=== PATIENT | male | born 1975 | race Caucasian/White ===

== ENCOUNTER 2021-07-19 19:30 | Inpatient (IN) ==
[2021-07-19] MEDS ORDERED: MULTI-VITAMIN INFUSION 10 ML, THIAMINE HCL 100 MG, FOLIC ACID 1 MG in SODIUM CHLORIDE 0... IV ONE (20:06)
[2021-07-19] MEDS ORDERED: LACTATED RINGER'S 1,000 ML IV ONE (20:06)
[2021-07-19 21:03] LABS: Basophils # (auto) 0.05 K/uL (0-0.2); Basophils % (auto) 0.6 %; Eosinophils # (auto) 0.02 K/uL (0-0.5); Eosinophils % (auto) 0.2 %; Hematocrit (blood only) 46.7 % (42-52); Immature Granulocytes # (auto) 0.01 K/uL (0.00-0.02); Immature Granulocytes % (auto) 0.1 %; Lymphocytes # (auto) 1.62 K/uL (1.2-3.4); Lymphocytes % (auto) 18.8 %; Mean Corpuscular Hemoglobin 33.1 pg (25-34); Mean Corpuscular Hgb Conc 34.3 g/dL (32-36); Mean Corpuscular Volume 96.7 fL (80-100); Mean Platelet Volume 10.2 fL (7.4-10.4); Monocytes # (auto) 0.92 K/uL (0.11-0.59); Monocytes % (auto) 10.7 %; Neutrophils # (auto) 6.01 K/uL (1.4-6.5); Neutrophils % (auto) 69.6 %; Platelet Count 205 K/uL (130-400); RDW Coefficient of Variation 13.2 % (11.5-14.5); RDW Standard Deviation 47.4 fL (36.4-46.3); Red Blood Count 4.83 M/uL (4.7-6.1); White Blood Count 8.63 K/uL (4.8-10.8)
[2021-07-19 21:19] LABS: Amphetamines+Metham, Urine Neg (Neg); Barbiturates, Urine Neg (Neg); Benzodiazepine, Urine Neg (Neg); Cocaine, Urine Neg (Neg); MDMA (Ecstacy), Urine Neg (Neg); Methadone, Urine Pos (Neg); Opiate, Urine Neg (Neg); Phencyclidine, Urine Neg (Neg)
[2021-07-19 21:32] LABS: Alanine Aminotransferase 77 U/L (12-78); Albumin Level 4.6 gm/dl (3.4-5.0); Alkaline Phosphatase 75 U/L (45-117); Aspartate Aminotransferase 61 U/L (15-37); BUN Creatinine Ratio 12.3 (10-20); Bilirubin,Total 1.4 mg/dl (0.2-1); Blood Urea Nitrogen 12 mg/dl (7-18); Calcium 9.9 mg/dl (8.5-10.1); Carbon Dioxide 24 mmol/L (21-32); Chloride 96 mmol/L (98-107); Creatinine Clr Calc Pharmacy 74.5 ml/min; Est GFR (African American) 101.5 ml/min; Est GFR (Non-African American) 87.5 ml/min; Globulin 4.6 gm/dl (2.5-4.0); Glucose 109 mg/dl (70-99); Lipase 124 U/L (73-393); Magnesium 2.2 mg/dl (1.8-2.4); Potassium 3.2 mmol/L (3.5-5.1); Sodium 133 mmol/L (136-145); Total Protein 9.2 gm/dl (6.4-8.2); Troponin I < 0.015 ng/ml (0-0.045)
[2021-07-19 21:53] LABS: T4 Free Thyroxine 0.88 ng/dl (0.8-1.6)
--- NOTE | 2021-07-20 00:18 | Emergency Department Note ---
History of Present Illness General Chief complaint: Alcohol Withdrawal Time Seen by Provider: 07/19/21 19:59 Source: patient Mode of arrival: ambulatory Limitations: no limitations History of Present Illness Provider complaint: alcohol withdrawal Onset (ago): day(s) 2 Treatments prior to arrival: none This is a 46-year-old male who presents via EMS due to concern for alcohol withdrawal. Patient states for the last year he has been drinking more than 1/5 of whiskey daily. He states he quit drinking 2 nights ago and has been feeling worse ever since. Patient states he has a sense of shaking, headache, racing heart, abdominal cramping intermittently, and lightheadedness. Patient denies any falls or injury. States 2 nights ago when he was heavily intoxicated he did blackout, and police were contacted. He states he remembers being told that he was belligerent during that encounter with police although does not recall what happened or what was said. Patient denies any suicidal ideation. Patient states he did contact his outside providers to try and get help and was referred to [facility]. He states he did speak with him about the intake process, and is waiting for paperwork to be completed so he can go there. Patient denies any prior admissions for alcohol withdrawal. No history of seizures. Patient does use methadone daily and follows with the clinic. Pt seen during a time of high acuity and national emergency pandemic while wearing PPE. Home Medications Medication Instructions Recorded Confirmed Type epinephrine 0.3 mg/0.3 mL 0.3 mg IM Q15M PRN #2 ea 02/05/21 07/19/21 Rx injection, auto-injector (EpiPen) bismuth subsalicylate 262 mg 2 tab PO DIRECTED PRN 06/12/21 07/19/21 History chewable tablet (Pepto-Bismol) methadone 10 mg tablet 30 mg PO QAM 06/12/21 07/19/21 History multivitamin 1 tab PO DAILY 06/12/21 07/19/21 History Allergies Allergy/AdvReac Type Severity Reaction Status Date / Time amoxicillin [From Augmentin] Allergy Severe Anaphylaxis Verified 07/19/21 20:24 clavulanic acid Allergy Severe Anaphylaxis Verified 07/19/21 20:24 [From Augmentin] Penicillins Allergy Unknown STRONG Verified 07/19/21 20:24 FAMILY HX OF ALLERGIC REACTIONS Past Med/Surg History Medical History Dental caries Methadone use Surgical History No significant past surgical history Family History Other Family history non-contributory Social History Smoking Status: Current every day smoker Tobacco Type: Cigarettes Hx Substance Use: Yes Preferred Language: [place] marital status: Legally current occupational status: employed Feels Safe at Home: Yes Review of Systems A total of 10 systems reviewed and were otherwise negative All systems reviewed & are unremarkable except as noted in HPI & below Physical Exam Vital Signs Vital Signs - 24 hr 07/19/21 19:33 07/19/21 20:40 07/19/21 21:30 Temperature 35.9 C L 37.0 C Temperature Source Temporal Artery Scan Oral Pulse Rate 111 H Pulse Rate [Finger] 84 95 H Respiratory Rate 24 18 18 Respiratory Effort / Characteristics Non-Labored Spontaneous Non-Labored Respiratory Depth Normal Normal Respiratory Pattern Blood Pressure 133/93 Blood Pressure [Left Arm] 128/102 H 168/114 H Blood Pressure Mean 106 Blood Pressure Mean [Left Arm] 110 132 Blood Pressure Position [Left Arm] Sitting Pulse Oximetry 97 96 97 Oxygen Delivery Method Room Air Room Air Room Air Sepsis Recent Fever Within 48 Hours No Sepsis New/Unexplained Change in Mental Status No Sepsis Action Taken by Nursing No Action Required 07/19/21 22:40 07/20/21 00:30 07/20/21 01:27 Temperature 36.8 C Temperature Source Oral Pulse Rate Pulse Rate [Finger] 87 82 79 Respiratory Rate 16 18 18 Respiratory Effort / Characteristics Non-Labored Spontaneous Non-Labored Spontaneous Respiratory Depth Normal Normal Respiratory Pattern Regular Regular Blood Pressure Blood Pressure [Left Arm] 132/96 140/99 142/101 H Blood Pressure Mean Blood Pressure Mean [Left Arm] 108 112 114 Blood Pressure Position [Left Arm] Sitting Sitting Pulse Oximetry 98 96 96 Oxygen Delivery Method Room Air Room Air Room Air Sepsis Recent Fever Within 48 Hours Sepsis New/Unexplained Change in Mental Status Sepsis Action Taken by Nursing 07/20/21 01:31 Temperature Temperature Source Pulse Rate Pulse Rate [Finger] Respiratory Rate Respiratory Effort / Characteristics Respiratory Depth Respiratory Pattern Blood Pressure Blood Pressure [Left Arm] 125/87 Blood Pressure Mean Blood Pressure Mean [Left Arm] 99 Blood Pressure Position [Left Arm] Pulse Oximetry Oxygen Delivery Method Sepsis Recent Fever Within 48 Hours Sepsis New/Unexplained Change in Mental Status Sepsis Action Taken by Nursing GENERAL: alert, well appearing, well nourished, no distress, non-toxic EYE EXAM: normal conjunctiva, PERRL and EOM's grossly intact OROPHARYNX: no exudate, no erythema, lips, buccal mucosa, and tongue normal and mucous membranes are mildly dry NECK: supple, no nuchal rigidity, no adenopathy, non-tender LUNGS: Clear to auscultation. Normal chest wall mechanics, no w/r/r HEART: no murmurs, S1 normal and S2 normal ABDOMEN: abdomen soft, non-tender, normo-active bowel sounds, no masses, no rebound or guarding. BACK: Back is symmetrical on inspection and there is no deformity, no midline tenderness, no CVA tenderness. SKIN: no rashes and no bruising UPPER EXTREMITIES: upper extremities are grossly normal. FROM, nml pulses b/l. Scattered areas of ecchymosis appear to be resolving noted to arms which patient states are from episode several nights ago where police had to restrain him. LOWER EXTREMITIES: No pitting edema. FROM, nml pulses b/l. NEURO EXAM: Normal sensorium, cranial nerves II-XII grossly intact, normal speec h, , no tremors, no gross weakness of arms, no gross weakness of legs. Gross sensation intact. Course Course 2345: Patient states he does feel better with the medication but can tell when it wears off. 0110: Discussed with patient disposition and options at this time. Patient does feel some relief with medications, he is concerned overall that the medications were off and he feels worse again. Given risk of worsening complications related to alcohol withdrawal, patient was in agreement with plan for additional inpatient monitoring and treatment. Administered Medications Discontinued Medications Diazepam (Diazepam 5 Mg/Ml Inj 10ml Vial) 10 mg IV NOW STA Stop: 07/19/21 20:07 Last Admin: 07/19/21 20:21 Dose: 10 mg Documented by: [id number] Diazepam (Diazepam 5 Mg/Ml Inj 10ml Vial) 10 mg IV NOW STA Stop: 07/19/21 21:28 Last Admin: 07/19/21 21:43 Dose: 10 mg Documented by: [id number] Diazepam (Diazepam 5 Mg/Ml Inj 10ml Vial) 10 mg IV NOW STA Stop: 07/19/21 23:35 Last Admin: 07/19/21 23:40 Dose: 10 mg Documented by: [id number] Diazepam (Diazepam 5 Mg/Ml Inj 10ml Vial) 10 mg IV NOW STA Stop: 07/20/21 01:14 Last Admin: 07/20/21 01:28 Dose: 10 mg Documented by: [id number] Multivitamins 10 ml/ Thiamine HCl 100 mg/ Folic Acid 1 mg/Sodium Chloride 1,011.2 mls @ 250 mls/hr IV .Q4H3M ONE Stop: 07/20/21 00:08 Last Infusion: 07/20/21 01:36 Dose: 0 mls/hr Documented by: [id number] Admin: 07/19/21 21:20 Dose: 250 mls/hr Documented by: [id number] Lactated Ringer's (Lr) 1,000 mls @ 999 mls/hr IV .Q1H1M ONE Stop: 07/19/21 21:06 Last Infusion: 07/19/21 21:25 Dose: 0 mls/hr Documented by: [id number] Admin: 07/19/21 20:21 Dose: 999 mls/hr Documented by: [id number] Lactated Ringer's (Lr) 1,000 mls @ 999 mls/hr IV .Q1H1M ONE Stop: 07/20/21 01:34 Last Admin: 07/20/21 01:32 Dose: 999 mls/hr Documented by: [id number] Medical Decision Making Differential Diagnosis Differential diagnosis includes etiologies such as alcohol intoxication, toxicologic, infection, hypoglycemia, electrolyte abnormalities, cardiac jael rces, intracerebral event, neurologic, as well as others were entertained. Medical Records Attestation: I reviewed the patient's medical records. Home Medications Current Medication List: was personally reviewed by me Laboratory Data Attestation: I reviewed the patient's lab results. Result diagrams: 07/19/21 19:55 07/19/21 19:55 Lab Results 07/19/21 07/19/21 07/19/21 Range/Units 19:54 19:55 19:55 WBC 8.63 (4.8-10.8) K/uL RBC 4.83 (4.7-6.1) M/uL Hgb 16.0 (14.0-18.0) g/dL Hct 46.7 (42-52) % MCV 96.7 (80-100) fL MCH 33.1 (25-34) pg MCHC 34.3 (32-36) g/dL RDW Std Deviation 47.4 H (36.4-46.3) fL RDW Coeff of Samantha 13.2 (11.5-14.5) % Plt Count 205 (130-400) K/uL MPV 10.2 (7.4-10.4) fL Immature Gran % (Auto) 0.1 % Neut % (Auto) 69.6 % Lymph % (Auto) 18.8 % Gilchrist % (Auto) 10.7 % Eos % (Auto) 0.2 % Baso % (Auto) 0.6 % Neut # (Auto) 6.01 (1.4-6.5) K/uL Lymph # (Auto) 1.62 (1.2-3.4) K/uL [place]christ # (Auto) 0.92 H (0.11-0.59) K/uL Eos # (Auto) 0.02 (0-0.5) K/uL Baso # (Auto) 0.05 (0-0.2) K/uL Immature Gran # (Auto) 0.01 (0.00-0.02) K/uL PT (9.0-12.0) Seconds INR (0.9-1.1) Sodium 133 L D (136-145) mmol/L Potassium 3.2 L (3.5-5.1) mmol/L Chloride 96 L (98-107) mmol/L Carbon Dioxide 24 (21-32) mmol/L Anion Gap 13.0 H (3-11) BUN 12 (7-18) mg/dl Creatinine 1.01 (0.6-1.4) mg/dl Est Cr Clr Drug Dosing 74.5 ml/min Est GFR ( Amer) 101.5 ml/min Est GFR (Non-Af Amer) 87.5 ml/min BUN/Creatinine Ratio 12.3 (10-20) Glucose 109 H (70-99) mg/dl Calcium 9.9 D (8.5-10.1) mg/dl Magnesium 2.2 (1.8-2.4) mg/dl Total Bilirubin 1.4 H D (0.2-1) mg/dl AST 61 H (15-37) U/L ALT 77 (12-78) U/L Alkaline Phosphatase 75 (45-117) U/L Troponin I < 0.015 (0-0.045) ng/ml Total Protein 9.2 H D (6.4-8.2) gm/dl Albumin 4.6 (3.4-5.0) gm/dl Globulin 4.6 H (2.5-4.0) gm/dl Albumin/Globulin Ratio 1.0 (0.9-2) Lipase 124 (73-393) U/L TSH 4.600 H (0.300-4.500) uIu/ml Free T4 0.88 (0.8-1.6) ng/dl Urine Opiates Screen Neg (Neg) Ur Methadone, Qual Pos H (Neg) Urine Barbiturates Neg (Neg) Ur Phencyclidine (PCP) Neg (Neg) U Amphetamin/Meth Scrn Neg (Neg) MDMA (Ecstasy) Screen Neg (Neg) U Benzodiazepines Scrn Neg (Neg) Ur Cocaine Metabolite Neg (Neg) U Marijuana (THC) Screen Pos H (Neg) Ethyl Alcohol mg/dL (0-3) mg/dl 07/19/21 07/19/21 Range/Units 19:55 20:20 WBC (4.8-10.8) K/uL RBC (4.7-6.1) M/uL Hgb (14.0-18.0) g/dL Hct (42-52) % MCV (80-100) fL MCH (25-34) pg MCHC (32-36) g/dL RDW Std Deviation (36.4-46.3) fL RDW Coeff of Samantha (11.5-14.5) % Plt Count (130-400) K/uL MPV (7.4-10.4) fL Immature Gran % (Auto) % Neut % (Auto) % Lymph % (Auto) % Gilchrist % (Auto) % Eos % (Auto) % Baso % (Auto) % Neut # (Auto) (1.4-6.5) K/uL Lymph # (Auto) (1.2-3.4) K/uL Gilchrist # (Auto) (0.11-0.59) K/uL Eos # (Auto) (0-0.5) K/uL Baso # (Auto) (0-0.2) K/uL Immature Gran # (Auto) (0.00-0.02) K/uL PT 10.1 (9.0-12.0) Seconds INR 1.0 (0.9-1.1) Sodium (136-145) mmol/L Potassium (3.5-5.1) mmol/L Chloride (98-107) mmol/L Carbon Dioxide (21-32) mmol/L Anion Gap (3-11) BUN (7-18) mg/dl Creatinine (0.6-1.4) mg/dl Est Cr Clr Drug Dosing ml/min Est GFR ( Amer) ml/min Est GFR (Non-Af Amer) ml/min BUN/Creatinine Ratio (10-20) Glucose (70-99) mg/dl Calcium (8.5-10.1) mg/dl Magnesium (1.8-2.4) mg/dl Total Bilirubin (0.2-1) mg/dl AST (15-37) U/L ALT (12-78) U/L Alkaline Phosphatase (45-117) U/L Troponin I (0-0.045) ng/ml Total Protein (6.4-8.2) gm/dl Albumin (3.4-5.0) gm/dl Globulin (2.5-4.0) gm/dl Albumin/Globulin Ratio (0.9-2) Lipase (73-393) U/L TSH (0.300-4.500) uIu/ml Free T4 (0.8-1.6) ng/dl Urine Opiates Screen (Neg) Ur Methadone, Qual (Neg) Urine Barbiturates (Neg) Ur Phencyclidine (PCP) (Neg) U Amphetamin/Meth Scrn (Neg) MDMA (Ecstasy) Screen (Neg) U Benzodiazepines Scrn (Neg) Ur Cocaine Metabolite (Neg) U Marijuana (THC) Screen (Neg) Ethyl Alcohol mg/dL < 3.0 (0-3) mg/dl Imaging Data My Impression: X-ray: I interpreted the following studies. Chest: A single view study of the chest was reviewed and was negative for cardiomegaly, focal infiltrate, effusion, pulmonary edema, or wide mediastinum. Abd: No evidence of SBO or free air ECG Data Attestation: I personally reviewed and interpreted this ECG as follows: Indication: + toxicologic Rate (beats per minute): 94 Rhythm: + normal sinus ECG Intervals/blocks: + Normal QRS and + Prolonged QT ECG [place]: + Normal ECG ST segments: + Normal ST segments ECG Findings: + PVCs MDM Narrative This is a 46-year-old male who presents with concern for alcohol withdrawal symptoms. Patient admitted to heavy alcohol use over the last year, last drink was 2 days ago. Patient obviously tremulous, tachycardic, and hypertensive on arrival. Patient improved with 10 mg IV Valium. Labs drawn and sent as a precaution, x-ray performed. Mild electrolyte abnormalities noted. Patient was started on lactated Ringer's IV fluid rehydration as well as a banana bag at a maintenance rate. Patient monitored for several hours and did require several doses of IV Valium. Patient symptoms would improve with Valium, however you could note when the Valium would wear off as the patient would become tremulous, tachycardic, and hypertensive again. Patient had been attempting to arrange placement into rehab as an outpatient although given worsening symptoms with concern for needing to come here. Discussed all results with patient after monitoring for several hours, given several doses of Valium required, discussed additional inpatient monitoring and treatment. An order was placed for continuous cardiac monitoring. The monitor shows a rate of _92_ with _normal sinus__ rhythm. Impression & Plan Alcohol withdrawal syndrome, Hypokalemia, Dehydration Discharge Plan Visit Data Chief Complaint: Alcohol Withdrawal ED Provider: Maria Houston Discharge Problem: Alcohol withdrawal syndrome, Hypokalemia, Dehydration Patient Disposition: Being Evaluated by Hospitalist Forms Stand Alone Forms: My [facility], Suicide Prevention Resources Prescriptions Prescriptions: No Action multivitamin [One A Day Vitamin] Tablet 1 tab PO DAILY RF: 0 methadone 10 mg Tablet 30 mg PO QAM RF: 0 bismuth subsalicylate [Pepto-Bismol] 262 mg Tablet,Chewable 2 tab PO DIRECTED PRN (Reason: Stomach Upset) RF: 0 epinephrine [EpiPen] 0.3 mg/0.3 mL auto-injector 0.3 mg IM Q15M PRN (Reason: anaphylaxis) Qty: 2 RF: 0 Referrals Referrals: PCP,NO [Primary Care Provider] -
[2021-07-20] MEDS ORDERED: LACTATED RINGER'S 1,000 ML IV ONE (00:34)
[2021-07-20 02:18] LABS: Prothrombin Time 10.1 Seconds (9.0-12.0)
--- NOTE | 2021-07-20 02:25 | History & Physical Report ---
Date of Service July 20, 2021 Assessment & Plan (1) Alcohol withdrawal syndrome: Plan: 46 yo M admitted for management of alcohol withdrawal. Alcohol Withdrawal - requiring 10 mg Diazepam IV x 4 doses in ER for initial control of tremor s/anxiety/withdrawal sx - AWSS protocol with scheduled librium as primary, 1 mg IV ativan for AWSS scores 6+ as breakthrough PRN - monitor and hold for sedation - last drink Mon? night - alcohol level in ER <3 - received banana bag in ER Alcohol Abuse - hepatic function WNL (plt, inr, albumin) - placement to inpatient rehab at [facility]? pending - appreciate Case Management's assistance - mcv 95, mildly anemic to 13.3 - daily folic acid, B12 IV - B12, folic acid levels pending Elevated Total Bilirubin - hepatic panel pending - no complaints of RUQ pain - lipase 124 Opiate use disorder? - continue methadone 30 daily - UDS positive for methadone and marijuana Electrolyte Derangements - hyponatremia likely secondary to alcohol - hypokalemia repleted, trend DVT ppx: low risk, ambulate ad sandra FEN/GI: regular Bowel regimen: prn miralax Code Status: full code Dispo: PCU, d/c to inpatient rehab (2) Hypokalemia: (3) Dehydration: (4) Methadone use: History of Present Illness Primary Care Provider: NO PCP 46 yo M in ER for acute alcohol withdrawal. Has been drinking ~2 fifths of whiskey per day for the past year. He has started the process of getting into inpatient rehab a few days ago but said they're waiting on paperwork from the methadone clinic for approval. He denies a history of alcoholism prior to the past year. He has been experiencing shakes, tachycardia, palpitations and tingling since stopping drinking on saturday evening. He hasn't had a bowel movement in 3 days, but says his last one was black and tarry. Smokes 1/2 ppd x 20 years. also feeling as though he can't get enough air/it's hard to take a deep breath. Chills and sweats for the past 3 days. Allergies Allergy/AdvReac Type Severity Reaction Status Date / Time amoxicillin [From Augmentin] Allergy Severe Anaphylaxis Verified 07/19/21 20:24 clavulanic acid Allergy Severe Anaphylaxis Verified 11/10/21 20:24 [From Augmentin] Penicillins Allergy Unknown STRONG Verified 07/19/21 20:24 FAMILY HX OF ALLERGIC REACTIONS Home Medications Medication Instructions Recorded Confirmed Type epinephrine 0.3 mg/0.3 mL 0.3 mg IM Q15M PRN #2 ea 02/05/21 07/19/21 Rx injection, auto-injector (EpiPen) bismuth subsalicylate 262 mg 2 tab PO DIRECTED PRN 06/12/21 07/19/21 History chewable tablet (Pepto-Bismol) methadone 10 mg tablet 30 mg PO QAM 06/12/21 07/19/21 History multivitamin 1 tab PO DAILY 06/12/21 07/19/21 History Past Med/Surg History Medical History (Updated 07/20/21 @ 05:29 by Milly Garcia MD) Dental caries Methadone use Surgical History No significant past surgical history Family History Other Family history non-contributory Social History Smoking Status: Current every day smoker Tobacco Type: Cigarettes Do You Dip or Chew Tobacco: No; Tobacco Cessation Education Requested by Patient: No Hx Alcohol Use: Yes Alcohol type: hard liquor Hx Substance Use: Yes Last Used Substance: Days (ago) Last Used Substance Other:: 2 for alcohol Preferred Language: Korean Communication Ability: Effective Industrial Sales Manager Required: No Beliefs That Will Affect Care: None marital status: Unknown Current Living Situation: Parent and Family Current Living Situation Comment: mother and daughter current occupational status: employed Other Information That Helps Us Care for You: No Feels Safe at Home: Yes Safety Concerns: Feels Safe At This Time Assistive Devices: None Review of Systems Constitutional: + chills and + sweats; no fever and no fatigue Eyes: no blind spots and no discharge Ear, Nose, Mouth, Throat: no hearing loss and no nasal congestion Respiratory: + cough and + pain on inspiration; no dyspnea Cardiovascular: + palpitations; no chest pain, no dyspnea on exertion and no edema Gastrointestinal: + melena; no abdominal pain, no nausea, no vomiting, no constipation, no diarrhea/loose stools and no blood in stools Musculoskeletal: no joint pain and no myalgia Neurologic: + tingling; no numbness, no tremor(s), no seizure-like activity and no headache(s) Psychiatric: no auditory hallucinations, no visual hallucinations and no tactile hallucinations Endocrine: no fatigue Physical Exam Physical Exam: Constitutional: tremulous, anxious appearing, tearful Eyes: EOMI, pupils equal and reactive bilaterally, no scleral icterus Cardiac: RRR, no murmurs, gallops or rubs. Normal S1, S2 Pulm: good air entry bilaterally, some end expiratory wheezing R>L Abd: soft, nontender, nondistended, normal bowel sounds, no rebound or guarding Extremities: 2+ peripheral pulses, no edema Neuro: mild tremor, no focal deficits, moving all 4 limbs, A&Ox3 Results & Data Results & Data ([facility]) Vital Signs (Past 12 Hours) Vital Signs Temp Pulse Pulse Resp BP BP Pulse Ox 07/20/21 01:31 125/87 07/20/21 01:27 79 18 142/101 H 96 07/20/21 00:30 82 18 140/99 96 07/19/21 22:40 36.8 C 87 16 132/96 98 07/19/21 21:30 95 H 18 168/114 H 97 07/19/21 20:40 37.0 C 84 18 128/102 H 96 07/19/21 19:33 35.9 C L 111 H 24 133/93 97 Laboratory Results Laboratory Results WBC 5.34 K/uL (4.8-10.8) 07/20/21 05:11 RBC 4.04 M/uL (4.7-6.1) L 07/20/21 05:11 Hgb 13.3 g/dL (14.0-18.0) L 07/20/21 05:11 Hct 38.5 % (42-52) L 07/20/21 05:11 MCV 95.3 fL (80-100) 07/20/21 05:11 MCH 32.9 pg (25-34) 07/20/21 05:11 MCHC 34.5 g/dL (32-36) 07/20/21 05:11 RDW Std Deviation 46.7 fL (36.4-46.3) H 07/20/21 05:11 RDW Coeff of Samantha 13.4 % (11.5-14.5) 07/20/21 05:11 Plt Count 147 K/uL (130-400) 07/20/21 05:11 MPV 9.3 fL (7.4-10.4) 07/20/21 05:11 Immature Gran % (Auto) 0.0 % 07/20/21 05:11 Neut % (Auto) 48.7 % 07/20/21 05:11 Lymph % (Auto) 40.4 % 07/20/21 05:11 [place] % (Auto) 8.8 % 07/20/21 05:11 Eos % (Auto) 1.7 % 07/20/21 05:11 Baso % (Auto) 0.4 % 07/20/21 05:11 Neut # (Auto) 2.60 K/uL (1.4-6.5) 07/20/21 05:11 Lymph # (Auto) 2.16 K/uL (1.2-3.4) 07/20/21 05:11 [place] # (Auto) 0.47 K/uL (0.11-0.59) 07/20/21 05:11 Eos # (Auto) 0.09 K/uL (0-0.5) 07/20/21 05:11 Baso # (Auto) 0.02 K/uL (0-0.2) 07/20/21 05:11 Immature Gran # (Auto) 0.00 K/uL (0.00-0.02) 07/20/21 05:11 PT 10.1 Seconds (9.0-12.0) 07/19/21 19:55 INR 1.0 (0.9-1.1) 07/19/21 19:55 Sodium 133 mmol/L (136-145) L D 07/19/21 19:55 Potassium 3.2 mmol/L (3.5-5.1) L 07/19/21 19:55 Chloride 96 mmol/L (98-107) L 07/19/21 19:55 Carbon Dioxide 24 mmol/L (21-32) 07/19/21 19:55 Anion Gap 13.0 (3-11) H 07/19/21 19:55 BUN 12 mg/dl (7-18) 07/19/21 19:55 Creatinine 1.01 mg/dl (0.6-1.4) 07/19/21 19:55 Est Cr Clr Drug Dosing 74.5 ml/min 07/19/21 19:55 Est GFR ( Amer) 101.5 ml/min 07/19/21 19:55 Est GFR (Non-Af Amer) 87.5 ml/min 07/19/21 19:55 BUN/Creatinine Ratio 12.3 (10-20) 07/19/21 19:55 Glucose 109 mg/dl (70-99) H 07/19/21 19:55 Calcium 9.9 mg/dl (8.5-10.1) D 07/19/21 19:55 Magnesium 2.2 mg/dl (1.8-2.4) 07/19/21 19:55 Total Bilirubin 1.4 mg/dl (0.2-1) H D 07/19/21 19:55 AST 61 U/L (15-37) H 07/19/21 19:55 ALT 77 U/L (12-78) 07/19/21 19:55 Alkaline Phosphatase 75 U/L (45-117) 07/19/21 19:55 Troponin I < 0.015 ng/ml (0-0.045) 07/19/21 19:55 Total Protein 9.2 gm/dl (6.4-8.2) H D 07/19/21 19:55 Albumin 4.6 gm/dl (3.4-5.0) 07/19/21 19:55 Globulin 4.6 gm/dl (2.5-4.0) H 07/19/21 19:55 Albumin/Globulin Ratio 1.0 (0.9-2) 07/19/21 19:55 Lipase 124 U/L (73-393) 07/19/21 19:55 TSH 4.600 uIu/ml (0.300-4.500) H 07/19/21 19:55 Free T4 0.88 ng/dl (0.8-1.6) 07/19/21 19:55 Urine Opiates Screen Neg (Neg) 07/19/21 19:54 Ur Methadone, Qual Pos (Neg) H 07/19/21 19:54 Urine Barbiturates Neg (Neg) 07/19/21 19:54 Ur Phencyclidine (PCP) Neg (Neg) 07/19/21 19:54 U Amphetamin/Meth Scrn Neg (Neg) 07/19/21 19:54 MDMA (Ecstasy) Screen Neg (Neg) 07/19/21 19:54 U Benzodiazepines Scrn Neg (Neg) 07/19/21 19:54 Ur Cocaine Metabolite Neg (Neg) 07/19/21 19:54 U Marijuana (THC) Screen Pos (Neg) H 07/19/21 19:54 Ethyl Alcohol mg/dL < 3.0 mg/dl (0-3) 07/19/21 20:20 COVID-19 Eval Order Covid19 at [facility] 07/20/21 02:39 SARS-CoV-2 (PCR) NEGATIVE (Negative) 07/20/21 02:39 Supervising Physician Co-Signing Physician Notes Attending addendum: I have physically seen this patient, have supervised the medical residents activities, and agree with the H&P unless as otherwise noted. Assessment and Plan: Alcohol withdrawal/alcohol abuse- Admit to monitored bed Received diazepam 10 mg IV x4 in ED with transient improvement in symptoms AWSS protocol Consideration to adding phenobarbital IV as needed Thiamine 500 mg p.o. daily Folic acid 1 mg p.o. daily Nephrocaps 1 p.o. daily IV fluids Follow serial CBC with differential, chemistry profile and magnesium levels Opiate use- Continue methadone Urine drug screen- Positive for methadone and marijuana Remaining orders and notations as noted Resident Activity Tracking Resident Involvement: Resident Care Provided Care Provided: Adult Hospital Medicine (1) Alcohol withdrawal syndrome Complication of substance-induced condition: with unspecified complication Qualified Code(s): F10.239 - Alcohol dependence with withdrawal, unspecified
[2021-07-20] MEDS ORDERED: chlordiazePOXIDE ALCOHOL WITHDRAWL 50MG PO STA (02:30)
[2021-07-20] MEDS: chlordiazePOXIDE HCl 25 MG CAP PO SCH ×4 (05:15→23:09)
[2021-07-20] MEDS: LACTATED RINGER'S 1,000 ML IV SCH ×3 (05:18→19:36)
[2021-07-20 05:21] LABS: Basophils # (auto) 0.02 K/uL (0-0.2); Basophils % (auto) 0.4 %; Eosinophils # (auto) 0.09 K/uL (0-0.5); Eosinophils % (auto) 1.7 %; Hematocrit (blood only) 38.5 % (42-52); Hemoglobin 13.3 g/dL (14.0-18.0); Lymphocytes # (auto) 2.16 K/uL (1.2-3.4); Lymphocytes % (auto) 40.4 %; Mean Corpuscular Hemoglobin 32.9 pg (25-34); Mean Corpuscular Hgb Conc 34.5 g/dL (32-36); Mean Corpuscular Volume 95.3 fL (80-100); Mean Platelet Volume 9.3 fL (7.4-10.4); Monocytes # (auto) 0.47 K/uL (0.11-0.59); Monocytes % (auto) 8.8 %; Neutrophils % (auto) 48.7 %; Platelet Count 147 K/uL (130-400); RDW Coefficient of Variation 13.4 % (11.5-14.5); RDW Standard Deviation 46.7 fL (36.4-46.3); Red Blood Count 4.04 M/uL (4.7-6.1); White Blood Count 5.34 K/uL (4.8-10.8)
[2021-07-20] MEDS ORDERED: ATIVAN IV ALCOHOL WITHDRAWL IV PRN ×2 (05:22→06:13)
[2021-07-20] MEDS ORDERED: POTASSIUM CHLORIDE CRTAB 20 MEQ TABCR PO STA (05:43)
[2021-07-20 05:50] LABS: Albumin Level 3.3 gm/dl (3.4-5.0); BUN Creatinine Ratio 11.8 (10-20); Bilirubin Direct 0.4 mg/dl (0-0.2); Calcium 8.5 mg/dl (8.5-10.1); Creatinine Clr Calc Pharmacy 135.2 ml/min; Est GFR (African American) 117.7 ml/min; Est GFR (Non-African American) 101.6 ml/min; Potassium 3.1 mmol/L (3.5-5.1)
[2021-07-20 05:57] LABS: Albumin Globulin Ratio 0.9 (0.9-2); Bilirubin,Total 1.5 mg/dl (0.2-1); Globulin 3.7 gm/dl (2.5-4.0)
[2021-07-20] MEDS ORDERED: LORazepam 3 MG/6 ML VIAL IV PRN (06:13)
--- NOTE | 2021-07-20 06:53 | Hospitalist Progress Note ---
Date of Service July 20, 2021 Assessment & Plan (1) Alcohol withdrawal syndrome: Plan: 46yo male with a history of alcohol use disorder and opiate use disorder (on maintenance methadone therapy) presents with alcohol withdrawal in the setting of relapse. Alcohol withdrawal Patient with long history of alcohol use disorder with frequent ED visits for this in the past, denies history of DTs or seizures Per patient, last drink was Saturday night (07/17, three days ago) Required diazepam 10mg x4 in ER for initial symptomatic control Hemodynamically stable but with elevated BP; tachycardia resolved AWSS scores ranging from 6-10 since admission; has received total of 50mg diazepam, 50mg librium, and 4mg ativan Continue LR @ 125mL/hr Alcohol use disorder Patient endorses long history of alcohol use disorder, reports recent few- month period of abstinence Current relapse triggered by multifactorial psychosocial stressors including family conflict and legal troubles Mildly elevated AST to 54, Tbili elevated to 1.5, ALT and alk phos wnl Patient expresses interest in inpatient rehab at [facility] once medically stable; CM following Continue folic acid, B12 Patient is not a naltrexone candidate given methadone use Recommend PCP follow-up, psychotherapy, outpatient psychiatry for diagnostic clarity and treatment History of suicidal ideation Patient noted with recent ED visits notable for suicidal and/or homicidal ideation Patient denies SI/HI at this time; 1:1 sit not indicated at this time Continue to monitor Anemia, melena Patient with mild normocytic anemia to 13.3, down from 16.0 on admission Given a comparable degree of reduction in all cell lines, fall in Hgb likely represents hemodilution in the setting of mild chronic anemia Patient notes recent dark tarry stools; FOBT ordered Continue pantoprazole 40mg IV bid Trend daily CBC Opioid use disorder Patient with long history of opioid use disorder, on maintenance methadone therapy Continue methadone 30mg daily Transaminitis, hyperbilirubinemia Patient with mild AST elevation (to 54) and Tbili elevation to 1.5 Likely represents alcoholic hepatitis Given absence of RUQ pain or other signs/symptoms of hepatic dysfunction, further workup not urgently needed Recommend outpatient follow-up Hypokalemia Patient with mild hypokalemia to 3.3, likely secondary to alcohol use, poor PO intake Replete orally, trend daily BMP FEN: regular diet, LR @ 125mL/hr Code status: full code DVT ppx: ambulation Held home meds: none PT/OT: not indicated Case management: following Dispo: PCU with plan for DC to inpatient rehab when medically stable Admission and Anticipated Discharge Date Admission Date: July 20, 2021 Supervising Physician Co-Signing Physician Notes I personally examined the patient and verified all fermin points of history and exam, discussed case, and agree with decision making with Dr Olivas feeling better less shaky vitals noted nad heent nc at mmm breathing unlabored no accessory muscles good effort skin no rashes no pallor or icterus. minimal tremor, HR ~80's EtOH withdrawal - doing better but still early - hopefully will not regress but continue to follow closely EtOH abuse, mild EtOH liver disease findings - follow, thiamine, folate, encourage cessation otherwise as above Subjective Patient seen and evaluated at bedside this morning. Overnight, AWSS score ranged from 6-10 with points for anxiety, restlessness, tremor, and elevated DBP. Since arrival yesterday, patient has received 50mg diazepam, 50mg librium, and 4mg ativan. This morning, patient feels well overall and notes significantly improved anxiety and tremor since admission. Endorses mild nausea and very mild lower abdominal cramping which is normal for him. Patient denies CP, SOB, vomiting, and dizziness. Denies SI/HI at this time. Endorses interest in pursuing inpatient rehab. Review of Systems Review of Systems: See HPI Physical Exam Physical Exam: Constitutional: well-appearing, no acute distress, laying comfortably in bed HEENT: NCAT, no conjunctival injection, no scleral icterus CV: regular rhythm, no murmur appreciated, extremities well-perfused, no LE edema Resp: CTABL GI: soft, nondistended, minimally tender in lower quadrants, BS present Neuro: AOx4, no focal neurological deficits appreciated, no tremor Appearance: wearing hospital gown Behavior: calm, cooperative, eye contact good Mood: "way better than yesterday" Affect: pleasant, affect congruent with mood Speech: appropriate rate/quantity/volume Thought process: linear, coherent Thought content: appropriate to topic of discussion, denies SI/HI Cognition: alert, focused, short- and long-term memory grossly intact, abstraction intact Insight: fair Judgment: fair Results & Data Results & Data ([facility]) Vital Signs (Past 12 Hours) Vital Signs Temp Pulse Pulse Resp BP BP Pulse Ox 07/20/21 04:50 36.6 C 67 22 146/101 H 95 07/20/21 04:34 61 117/92 96 07/20/21 03:04 68 15 128/98 98 07/20/21 01:31 125/87 07/20/21 01:27 79 18 142/101 H 96 07/20/21 00:30 82 18 140/99 96 07/19/21 22:40 36.8 C 87 16 132/96 98 07/19/21 21:30 95 H 18 168/114 H 97 07/19/21 20:40 37.0 C 84 18 128/102 H 96 07/19/21 19:33 35.9 C L 111 H 24 133/93 97 Resident Activity Tracking Resident Involvement: Resident Care Provided Care Provided: Adult Hospital Medicine (1) Alcohol withdrawal syndrome Complication of substance-induced condition: with unspecified complication Qualified Code(s): F10.239 - Alcohol dependence with withdrawal, unspecified
[2021-07-20] MEDS: METHADONE HCL 5 MG TAB PO SCH (06:55)
[2021-07-20] MEDS: LORazepam 1 MG/2 ML VIAL IV PRN ×2 (06:57→23:43)
--- NOTE | 2021-07-20 07:32 | XRay Report ---
PA CHEST WITH ABDOMINAL SERIES CLINICAL HISTORY: Nausea. Left upper quadrant abdominal pain FINDINGS: A PA chest radiograph is compared to study dated 06/12/2021. The cardiomediastinal silhouette is unrem arkable. There is mild elevation of the right hemidiaphragm and bibasilar atelectasis. The lungs and pleural spaces are otherwise clear. No pneumothorax is seen. The bony thorax is grossly intact. Supine and erect abdominal radiographs are correlated with abdominal CT dated 06/14/2021. There is a n onobstructed abdominal bowel gas pattern. Moderate fecal retention is noted in the right colon. No ev idence of intraperitoneal free air is seen. There are no abnormal abdominal calcifications. The lumbo sacral spine and bony pelvis appear intact. IMPRESSION: 1. No active disease in the chest. 2. Nonobstructed abdominal bowel gas pattern. ACT 112: Negative or not required by law. Electronically signed by: Harsh Rubio M.D. 07/20/2021 7:31 AM
[2021-07-20] MEDS: THIAMINE HCL 100 MG in SYRINGE 9 ML IV SCH (08:33)
[2021-07-20] MEDS: POLYETHYLENE (MIRALAX) 17 GM PACK PO SCH ×2 (08:33→19:33)
[2021-07-20] MEDS: FOLIC ACID 1 MG in SYRINGE 9.8 ML IV SCH (08:33)
[2021-07-20] MEDS: POTASSIUM CHLORIDE CRTAB 20 MEQ TABCR PO SCH ×2 (08:34→19:32)
[2021-07-20] MEDS ORDERED: METHADONE HCL 10 MG TAB PO SCH (09:00)
[2021-07-20 09:07] LABS: Folate (Folic Acid) > 20.00 ng/ml (>5.38); Vitamin B12 475 pg/ml (193-986)
[2021-07-20] MEDS ORDERED: POTASSIUM CHLORIDE CRTAB 20 MEQ TABCR PO ONE (12:00)
[2021-07-20] MEDS: PANTOprazole 40 MG in SYRINGE 0 ML IV SCH ×2 (12:37→19:32)
[2021-07-20] MEDS: LORazepam 2 MG/4 ML VIAL IV PRN ×2 (15:32→19:38)
[2021-07-20] MEDS ORDERED: NICOTINE POLACRILEX 2 MG GUM MT PRN (18:14)
[2021-07-20] MEDS: NICOTINE 7 MG/24 HR TDSY TD SCH (19:31)
--- NOTE | 2021-07-20 19:47 | Electrocardiogram Report ---
Test Reason : Blood Pressure : / mmHG Vent. Rate : 094 BPM Atrial Rate : 094 BPM P-R Int : 136 ms QRS Dur : 090 ms QT Int : 352 ms P-R-T Axes : 049 002 024 degrees QTc Int : 441 ms Poor data quality, interpretation may be adversely affected Sinus rhythm with occasional Premature ventricular complexes Abnormal ECG When compared with ECG of 04-FEB-2021 20:39, Premature ventricular complexes are now Present T wave inversion no longer evident in Anterolateral leads ST no longer depressed in Anterolateral leads Confirmed by Mike Souza ([id number]) on 07/20/2021 7:47:06 PM Referred By: REFERRED SELF Confirmed By:Mike Souza
--- NOTE | 2021-07-20 20:10 | Billing Data ---
Date of Service July 20, 2021 Coding Level of Care Code 12376 Initial Inpt Care Lvl 3
[2021-07-21] MEDS: LORazepam 1 MG/2 ML VIAL IV PRN ×3 (03:45→21:06)
[2021-07-21] MEDS: LACTATED RINGER'S 1,000 ML IV SCH ×3 (03:47→20:56)
[2021-07-21] MEDS: METHADONE HCL 5 MG TAB PO SCH (05:56)
[2021-07-21] MEDS: chlordiazePOXIDE HCl 25 MG CAP PO SCH (05:56)
[2021-07-21 07:04] LABS: Basophils # (auto) 0.02 K/uL (0-0.2); Basophils % (auto) 0.5 %; Eosinophils % (auto) 2.7 %; Hematocrit (blood only) 39.3 % (42-52); Hemoglobin 13.2 g/dL (14.0-18.0); Immature Granulocytes # (auto) 0.01 K/uL (0.00-0.02); Immature Granulocytes % (auto) 0.3 %; Lymphocytes # (auto) 1.21 K/uL (1.2-3.4); Mean Corpuscular Hemoglobin 33.3 pg (25-34); Mean Corpuscular Hgb Conc 33.6 g/dL (32-36); Mean Corpuscular Volume 99.2 fL (80-100); Mean Platelet Volume 9.9 fL (7.4-10.4); Monocytes # (auto) 0.33 K/uL (0.11-0.59); Neutrophils % (auto) 54.5 %; Platelet Count 136 K/uL (130-400); RDW Coefficient of Variation 13.4 % (11.5-14.5); RDW Standard Deviation 48.2 fL (36.4-46.3); Red Blood Count 3.96 M/uL (4.7-6.1); White Blood Count 3.67 K/uL (4.8-10.8)
--- NOTE | 2021-07-21 07:35 | Hospitalist Progress Note ---
Date of Service July 21, 2021 Assessment & Plan (1) Alcohol withdrawal syndrome: Plan: 46yo male with a history of alcohol use disorder and opiate use disorder (on maintenance methadone therapy) presents with alcohol withdrawal in the setting of relapse. Alcohol withdrawal Patient with long history of alcohol use disorder with frequent ED visits for this in the past, denies history of DTs or seizures Per patient, last drink was Saturday night (07/17, three days ago) Required diazepam 10mg x4 in ER for initial symptomatic control Hemodynamically stable but with elevated BP; tachycardia resolved AWSS scores ranging from 2-10 since admission; continue treating with ativan; librium discontinued Continue LR @ 125mL/hr Alcohol use disorder Patient endorses long history of alcohol use disorder, reports recent few- month period of abstinence Current relapse triggered by multifactorial psychosocial stressors including family conflict and legal troubles Mildly elevated AST to 54, Tbili elevated to 1.5, ALT and alk phos wnl Patient expresses interest in inpatient rehab at [facility] once medically stable; CM following Continue folic acid, B12 Patient is not a naltrexone candidate given methadone use Recommend PCP follow-up, psychotherapy, outpatient psychiatry for diagnostic clarity and treatment History of suicidal ideation Patient noted with recent ED visits notable for suicidal and/or homicidal ideation Patient denies SI/HI at this time; 1:1 sit not indicated at this time Continue to monitor Anemia, melena Patient with mild normocytic anemia to 13.3, down from 16.0 on admission Given a comparable degree of reduction in all cell lines, fall in Hgb likely represents hemodilution in the setting of mild chronic anemia Patient notes recent dark tarry stools; FOBT ordered Continue pantoprazole 40mg IV bid Trend daily CBC Opioid use disorder Patient with long history of opioid use disorder, on maintenance methadone therapy Continue methadone 30mg daily Transaminitis, hyperbilirubinemia Patient with mild AST elevation (to 54) and Tbili elevation to 1.5 Likely represents alcoholic hepatitis Given absence of RUQ pain or other signs/symptoms of hepatic dysfunction, further workup not urgently needed Recommend outpatient follow-up Hypokalemia Patient with mild hypokalemia to 3.3, likely secondary to alcohol use, poor PO intake Replete orally, trend daily BMP FEN: regular diet, LR @ 125mL/hr Code status: full code DVT ppx: ambulation Held home meds: none PT/OT: not indicated Case management: following Dispo: med/surg with plan for DC to inpatient rehab when medically stable Admission and Anticipated Discharge Date Admission Date: July 20, 2021 Supervising Physician Co-Signing Physician Notes I personally examined the patient and verified all fermin points of history and exam, discussed case, and agree with decision making with Dr Olivas feeling better less shaky is planning on going to rehab, just working through the anxiety of being away from his 12-year-old daughter for a while. vitals noted nad heent nc at mmm breathing unlabored no accessory muscles good effort skin no rashes no pallor or icterus. minimal tremor, HR ~80's EtOH withdrawal - doing better overall, doubt this will get worse. Continue symptom triggered therapy, but seems to be improving. EtOH abuse, mild EtOH liver disease findings - follow, thiamine, folate, encourage cessationapplauded efforts to go to rehab. otherwise as above Subjective Received 9mg ativan over the past 24 hours - 7mg during the day and 2mg overnight. Patient seen and evaluated at bedside this morning. Patient feels a bit anxious this morning and endorses mild back spasms but otherwise feels well. Patient denies CP, SOB, abdominal pain, nausea, vomiting, lightheadedness, dizziness, and diarrhea. Review of Systems Review of Systems: See HPI Physical Exam Physical Exam: Constitutional: well-appearing, no acute distress, sitting up in bed HEENT: no scleral icterus CV: regular rhythm, no murmur appreciated, extremities well-perfused, no LE edema Resp: CTABL, breathing non-labored GI: soft, nondistended, minimally tender in lower quadrants Neuro: AOx4, no focal neurological deficits appreciated, no tremor Appearance: wearing hospital gown Behavior: calm, cooperative, eye contact good Mood: "okay" Affect: pleasant, affect congruent with mood Speech: appropriate rate/quantity/volume Thought process: linear, coherent Thought content: appropriate to topic of discussion, denies SI/HI Cognition: alert, focused, short- and long-term memory grossly intact, abstraction intact Insight: fair Judgment: fair Results & Data Results & Data ([facility]) Vital Signs (Past 12 Hours) Vital Signs Temp Pulse Pulse Pulse Resp BP Pulse Ox 07/21/21 07:23 36.7 C 82 18 124/88 97 07/21/21 06:09 36.2 C L 79 18 126/86 95 07/21/21 03:36 36.8 C 79 24 140/94 95 07/21/21 00:00 75 Resident Activity Tracking Resident Involvement: Resident Care Provided Care Provided: Adult Hospital Medicine (1) Alcohol withdrawal syndrome Complication of substance-induced condition: with unspecified complication Qualified Code(s): F10.239 - Alcohol dependence with withdrawal, unspecified
[2021-07-21 07:46] LABS: BUN Creatinine Ratio 14.6 (10-20); Calcium 8.9 mg/dl (8.5-10.1); Est GFR (African American) 127.8 ml/min; Est GFR (Non-African American) 110.3 ml/min; Potassium 4.1 mmol/L (3.5-5.1)
[2021-07-21] MEDS ORDERED: CYCLOBENZAPRINE HCL 5 MG TAB PO STA (08:25)
[2021-07-21] MEDS ORDERED: LORazepam 1 MG TAB PO STA (08:25)
[2021-07-21] MEDS ORDERED: IBUPROFEN 800 MG TAB PO STA (08:26)
[2021-07-21] MEDS: PANTOprazole 40 MG in SYRINGE 0 ML IV SCH ×2 (09:29→21:05)
[2021-07-21] MEDS: POLYETHYLENE (MIRALAX) 17 GM PACK PO SCH ×2 (09:31→21:16)
[2021-07-21] MEDS: NICOTINE 7 MG/24 HR TDSY TD SCH (09:31)
[2021-07-21] MEDS: THIAMINE HCL 100 MG in SYRINGE 9 ML IV SCH (09:32)
[2021-07-21] MEDS: POTASSIUM CHLORIDE CRTAB 20 MEQ TABCR PO SCH (09:33)
[2021-07-21] MEDS: FOLIC ACID 1 MG in SYRINGE 9.8 ML IV SCH (09:44)
--- NOTE | 2021-07-21 17:32 | Billing Data ---
Date of Service July 21, 2021 Coding Level of Care Code 34395 Subseq Hosp Care Lvl 2
[2021-07-21] MEDS ORDERED: POTASSIUM CHLORIDE CRTAB 20 MEQ TABCR PO ONE (20:00)
[2021-07-22] MEDS: LORazepam 1 MG/2 ML VIAL IV PRN ×3 (03:36→17:24)
[2021-07-22] MEDS: METHADONE HCL 5 MG TAB PO SCH (05:55)
--- NOTE | 2021-07-22 06:35 | Hospitalist Progress Note ---
Date of Service July 22, 2021 Assessment & Plan (1) Alcohol withdrawal syndrome: Plan: 46yo male with a history of alcohol use disorder and opiate use disorder (on maintenance methadone therapy) presents with alcohol withdrawal in the setting of relapse. Alcohol withdrawal Patient with long history of alcohol use disorder with frequent ED visits for this in the past, denies history of DTs or seizures Per patient, last drink was Saturday night (07/17, three days ago) Required diazepam 10mg x4 in ER for initial symptomatic control Hemodynamically stable but with elevated BP; tachycardia resolved AWSS scores ranging from 2-10 since admission; continue treating with ativan; librium discontinued Patient is likely no longer withdrawing, and symptoms likely represent anxiety; will continue AWSS for now Anxiety Patient with severe anxiety despite improvement in withdrawal symptoms overall Continue ativan per AWSS protocol, added buspar 10mg tid Continue to monitor Alcohol use disorder Patient endorses long history of alcohol use disorder, reports recent few- month period of abstinence Current relapse triggered by multifactorial psychosocial stressors including family conflict and legal troubles Mildly elevated AST to 54, Tbili elevated to 1.5, ALT and alk phos wnl Patient expresses interest in inpatient rehab at [facility] once medically stable; CM following Continue folic acid, B12 Patient is not a naltrexone candidate given methadone use Recommend PCP follow-up, psychotherapy, outpatient psychiatry for diagnostic clarity and treatment History of suicidal ideation Patient noted with recent ED visits notable for suicidal and/or homicidal ideation Patient denies SI/HI at this time; 1:1 sit not indicated at this time Continue to monitor Anemia, melena Patient with mild normocytic anemia to 13.3, down from 16.0 on admission Given a comparable degree of reduction in all cell lines, fall in Hgb likely represents hemodilution in the setting of mild chronic anemia Patient notes recent dark tarry stools; FOBT ordered Continue pantoprazole 40mg IV bid Trend daily CBC Opioid use disorder Patient with long history of opioid use disorder, on maintenance methadone therapy Continue methadone 30mg daily Transaminitis (persists), hyperbilirubinemia (resolved) Patient with mild AST elevation (to 54) and Tbili elevation to 1.5 Likely represents alcoholic hepatitis Given absence of RUQ pain or other signs/symptoms of hepatic dysfunction, further workup not urgently needed Recommend outpatient follow-up Hypokalemia (resolved) Patient with mild hypokalemia likely secondary to alcohol use, poor PO intake Repleted orally, resolved, trend daily BMP FEN: regular diet, LR @ 125mL/hr Code status: full code DVT ppx: ambulation Held home meds: none PT/OT: not indicated Case management: following Dispo: med/surg with plan for DC to inpatient rehab when medically stable Admission and Anticipated Discharge Date Admission Date: July 20, 2021 Supervising Physician Co-Signing Physician Notes I personally examined the patient and verified all fermin points of history and exam, discussed case, and agree with decision making with Dr Olivas In discussion with nursing and resident physician, patient has been very anxious throughout the daymostly in regards to being away from his daughter for rehab. Whenever I go to see him he is sleeping comfortably and appears at peacetherefore the decision was made to let him rest. vitals noted resting, nad heent nc at mmm breathing unlabored no accessory muscles good effort skin no rashes no pallor or icterus. EtOH withdrawal - doing better overall, and honestly suspect most of his ОЛЬГА S scoring is now actually due to his anxiety not withdrawal. Severe/situational anxietyongoing reassurance and supportive care, initiate BuSpar, for now, still okay to utilize Ativan as needed severe anxiety 2. EtOH abuse, mild EtOH liver disease findings - follow, thiamine, folate, encourage cessationworking on rehab. otherwise as above Subjective Patient seen and evaluated at bedside this morning. Patient is very anxious this morning and was sobbing when I entered the room. Patient says his anxiety is from uncertainty regarding when and where he will go for rehab, as well as learning today that his daughter cannot visit him in the hospital because she is too young. Patient redirectable and reassurable. No somatic symptoms at this time including CP, SOB, abdominal pain, or nausea. Review of Systems Review of Systems: See HPI Physical Exam Physical Exam: Constitutional: sitting up in bed, crying CV: regular rhythm, no murmur appreciated, extremities well-perfused, no LE edema Resp: CTABL, breathing non-labored GI: soft, nondistended, minimally tender in lower quadrants Neuro: AOx4, no focal neurological deficits appreciated, no tremor Appearance: wearing hospital gown Behavior: anxious, crying, eye contact fair Mood: "terrible" Affect: distraught, affect congruent with mood Speech: appropriate rate/quantity/volume Thought process: linear, coherent Thought content: appropriate to topic of discussion, denies SI/HI Cognition: alert, focused, short- and long-term memory grossly intact, abstraction intact Insight: fair Judgment: fair Results & Data Results & Data ([facility]) Vital Signs (Past 12 Hours) Vital Signs Temp Pulse Pulse Pulse Resp BP BP 07/22/21 05:11 70 07/22/21 03:07 36.3 C L 82 22 135/91 07/21/21 23:02 36.4 C L 87 18 116/74 07/21/21 20:55 36.5 C 78 18 133/92 07/21/21 20:02 36.6 C 79 18 124/85 Pulse Ox 07/22/21 05:11 07/22/21 03:07 96 07/21/21 23:02 95 07/21/21 20:55 96 07/21/21 20:02 92 Resident Activity Tracking Resident Involvement: Resident Care Provided Care Provided: Adult Hospital Medicine (1) Alcohol withdrawal syndrome Complication of substance-induced condition: with unspecified complication Qualified Code(s): F10.239 - Alcohol dependence with withdrawal, unspecified
[2021-07-22 07:02] LABS: Basophils # (auto) 0.03 K/uL (0-0.2); Basophils % (auto) 0.5 %; Eosinophils # (auto) 0.15 K/uL (0-0.5); Eosinophils % (auto) 2.7 %; Hemoglobin 13.6 g/dL (14.0-18.0); Immature Granulocytes # (auto) 0.01 K/uL (0.00-0.02); Immature Granulocytes % (auto) 0.2 %; Lymphocytes # (auto) 1.65 K/uL (1.2-3.4); Lymphocytes % (auto) 29.2 %; Mean Corpuscular Hemoglobin 33.1 pg (25-34); Mean Corpuscular Hgb Conc 33.2 g/dL (32-36); Mean Corpuscular Volume 99.8 fL (80-100); Mean Platelet Volume 9.9 fL (7.4-10.4); Monocytes # (auto) 0.47 K/uL (0.11-0.59); Monocytes % (auto) 8.3 %; Neutrophils # (auto) 3.35 K/uL (1.4-6.5); Neutrophils % (auto) 59.1 %; Platelet Count 142 K/uL (130-400); RDW Coefficient of Variation 13.2 % (11.5-14.5); RDW Standard Deviation 47.8 fL (36.4-46.3); Red Blood Count 4.11 M/uL (4.7-6.1); White Blood Count 5.66 K/uL (4.8-10.8)
[2021-07-22 07:29] LABS: Albumin Level 3.4 gm/dl (3.4-5.0); BUN Creatinine Ratio 11.9 (10-20); Calcium 9.1 mg/dl (8.5-10.1); Creatinine Clr Calc Pharmacy 108.9 ml/min; Est GFR (African American) 92.5 ml/min; Est GFR (Non-African American) 79.8 ml/min; Potassium 4.2 mmol/L (3.5-5.1)
[2021-07-22 07:40] LABS: Albumin Globulin Ratio 0.9 (0.9-2); Bilirubin,Total 0.8 mg/dl (0.2-1); Globulin 3.7 gm/dl (2.5-4.0); Total Protein 7.1 gm/dl (6.4-8.2)
[2021-07-22] MEDS: LORazepam 2 MG/4 ML VIAL IV PRN ×4 (07:56→20:22)
[2021-07-22] MEDS: LACTATED RINGER'S 1,000 ML IV SCH ×2 (07:57→17:22)
[2021-07-22] MEDS: NICOTINE 7 MG/24 HR TDSY TD SCH (07:59)
[2021-07-22] MEDS: PANTOprazole 40 MG in SYRINGE 0 ML IV SCH ×2 (07:59→21:41)
[2021-07-22] MEDS: POTASSIUM CHLORIDE CRTAB 20 MEQ TABCR PO SCH (08:00)
[2021-07-22] MEDS: FOLIC ACID 1 MG in SYRINGE 9.8 ML IV SCH (08:00)
[2021-07-22] MEDS: THIAMINE HCL 100 MG in SYRINGE 9 ML IV SCH (08:00)
[2021-07-22] MEDS: POLYETHYLENE (MIRALAX) 17 GM PACK PO SCH ×2 (08:20→22:10)
[2021-07-22 08:31] LABS: Marijuana Quant, GCMS Urine >5000 ng/mL (<5); Methadone, Ur Metabolite >10000 ng/mL (<100)
[2021-07-22] MEDS ORDERED: LORazepam 1 MG/2 ML VIAL IV STA (10:01)
[2021-07-22] MEDS: busPIRone 5 MG TAB PO SCH ×2 (15:06→21:40)
--- NOTE | 2021-07-22 17:40 | Billing Data ---
Date of Service July 22, 2021 Coding Level of Care Code 26202 Subseq Hosp Care Lvl 1
[2021-07-23] MEDS: LACTATED RINGER'S 1,000 ML IV SCH ×3 (00:55→17:47)
[2021-07-23] MEDS ORDERED: Nursing to Pharmacy Communication SCH (01:00)
[2021-07-23] MEDS: LORazepam 2 MG/4 ML VIAL IV PRN ×4 (03:31→14:51)
[2021-07-23] MEDS: METHADONE HCL 5 MG TAB PO SCH (05:36)
[2021-07-23] MEDS: LORazepam 1 MG/2 ML VIAL IV PRN ×3 (05:42→20:19)
[2021-07-23 07:13] LABS: BUN Creatinine Ratio 13.1 (10-20); Creatinine Clr Calc Pharmacy 113.1 ml/min; Est GFR (African American) 96.8 ml/min; Est GFR (Non-African American) 83.5 ml/min
--- NOTE | 2021-07-23 07:15 | Hospitalist Progress Note ---
Date of Service July 23, 2021 Assessment & Plan (1) Alcohol withdrawal syndrome: Plan: 46yo male with a history of alcohol use disorder and opiate use disorder (on maintenance methadone therapy) presents with alcohol withdrawal in the setting of relapse. Alcohol withdrawal Patient with long history of alcohol use disorder with frequent ED visits for this in the past, denies history of DTs or seizures; last drink was evening of 07/17 Hemodynamically stable but with elevated BP; tachycardia resolved AWSS scores ranging from 2-10 since admission; continue treating with ativan; librium discontinued, IVF discontinued Patient is likely at the tail end of withdrawal or is no longer withdrawing; current symptoms likely represent anxiety; will continue AWSS for now, reevaluate daily Hoping for DC directly to inpatient rehab if possible; otherwise, DC home while waiting for inpatient rehab placement Anxiety Patient with severe anxiety despite improvement in withdrawal symptoms overall Continue buspar 10mg tid, ativan per AWSS protocol as above Continue to monitor Alcohol use disorder Patient endorses long history of alcohol use disorder, reports recent -sat period of abstinence Current relapse triggered by multifactorial psychosocial stressors including family conflict and legal troubles Mildly elevated AST to 54, Tbili elevated to 1.5, ALT and alk phos wnl Patient expresses interest in inpatient rehab at [facility] once medically stable; CM following Continue folic acid, B12 Patient is not a naltrexone candidate given methadone use Recommend PCP follow-up, psychotherapy, outpatient psychiatry for diagnostic clarity and treatment History of suicidal ideation Patient noted with recent ED visits notable for suicidal and/or homicidal ideation Patient denies SI/HI at this time; 1:1 sit not indicated at this time Continue to monitor Anemia, melena Patient with mild normocytic anemia which has been stable during this admission Trend daily CBC Opioid use disorder Patient with long history of opioid use disorder, on maintenance methadone therapy Continue methadone 30mg daily Transaminitis (persists), hyperbilirubinemia (resolved) Patient with mild AST elevation (to 54) and Tbili elevation to 1.5 Likely represents alcoholic hepatitis Given absence of RUQ pain or other signs/symptoms of hepatic dysfunction, further workup not urgently needed Recommend outpatient follow-up Hypokalemia (resolved) Patient with mild hypokalemia likely secondary to alcohol use, poor PO intake Repleted orally, resolved, trend daily BMP FEN: regular diet Code status: full code DVT ppx: ambulation Held home meds: none PT/OT: not indicated Case management: following Dispo: med/surg with plan for DC to inpatient rehab when medically stable Admission and Anticipated Discharge Date Admission Date: July 20, 2021 Supervising Physician Co-Signing Physician Notes I personally examined the patient and verified all fermin points of history and exam, discussed case, and agree with decision making with Dr Olivas Less anxious but still some. Feeling better overall. Still waiting on word from rehab. vitals noted pleasant, nad heent nc at mmm breathing unlabored no accessory muscles good effort skin no rashes no pallor or icterus. EtOH withdrawal - doing better overall, and honestly suspect most of his ОЛЬГА S scoring is now actually due to his anxiety not withdrawal, continue to follow Severe/situational anxietyongoing reassurance and supportive care, initiate BuSpar, for now, still okay to utilize Ativan as needed severe anxiety for now EtOH abuse, mild EtOH liver disease findings - follow, thiamine, folate, encourage cessationworking on rehab. otherwise as abovedisposition right now he is still in the hospital because he does not feel safe being at homeand fears that he will quickly relapse. On top of that, it sounded like he would likely be on to quickly get to rehab, although the initial rehab facilities that sounded like they may be able to take him right away it is now no longer clear will be on to take himwill await update from patient/case management tomorrow to further figure out dispo planning. Subjective Patient seen and evaluated at bedside this morning. Patient feels well today and notes his anxiety has improved compared to yesterday. No new concerns. Denies CP, SOB, nausea, vomiting, hallucinations, SI, HI, or other symptoms. Review of Systems Review of Systems: See HPI Physical Exam Physical Exam: Constitutional: well-appearing, no acute distress CV: extremities well-perfused Resp: no increased work of breathing Neuro: alert, oriented, no focal deficits Appearance: wearing hospital gown, sitting up in bed Behavior: calm, cooperative, eye contact good Mood: "okay today" Affect: pleasant, affect congruent with mood Speech: appropriate rate/quantity/volume Thought process: linear, coherent Thought content: appropriate to topic of discussion, denies SI/HI Cognition: alert, focused, short- and long-term memory grossly intact Results & Data Results & Data ([facility]) Vital Signs (Past 12 Hours) Vital Signs Temp Pulse Pulse Resp BP BP Pulse Ox 07/23/21 05:00 36.2 C L 88 22 113/79 95 07/23/21 03:17 36.6 C 82 20 117/85 95 07/23/21 00:00 76 07/22/21 22:38 36.7 C 77 18 111/83 96 07/22/21 21:37 36.8 C 85 20 129/86 93 07/22/21 19:47 36.8 C 95 H 131/90 93 Resident Activity Tracking Resident Involvement: Resident Care Provided Care Provided: Adult Hospital Medicine (1) Alcohol withdrawal syndrome Complication of substance-induced condition: with unspecified complication Qualified Code(s): F10.239 - Alcohol dependence with withdrawal, unspecified
[2021-07-23] MEDS: PANTOprazole 40 MG in SYRINGE 0 ML IV SCH ×2 (08:43→19:55)
[2021-07-23] MEDS: busPIRone 5 MG TAB PO SCH ×3 (08:43→19:53)
[2021-07-23] MEDS: FOLIC ACID 1 MG in SYRINGE 9.8 ML IV SCH (08:44)
[2021-07-23] MEDS: THIAMINE HCL 100 MG in SYRINGE 9 ML IV SCH (08:44)
[2021-07-23] MEDS: POTASSIUM CHLORIDE CRTAB 20 MEQ TABCR PO SCH (08:45)
[2021-07-23] MEDS: NICOTINE 7 MG/24 HR TDSY TD SCH (08:46)
[2021-07-23] MEDS: POLYETHYLENE (MIRALAX) 17 GM PACK PO SCH ×2 (08:52→20:11)
--- NOTE | 2021-07-23 19:53 | Billing Data ---
Date of Service July 23, 2021 Coding Level of Care Code 08783 Subseq Hosp Care Lvl 1
[2021-07-24] MEDS: METHADONE HCL 5 MG TAB PO SCH (05:27)
[2021-07-24 06:42] LABS: Basophils # (auto) 0.03 K/uL (0-0.2); Basophils % (auto) 0.5 %; Eosinophils # (auto) 0.25 K/uL (0-0.5); Hematocrit (blood only) 43.7 % (42-52); Hemoglobin 14.5 g/dL (14.0-18.0); Immature Granulocytes # (auto) 0.03 K/uL (0.00-0.02); Immature Granulocytes % (auto) 0.5 %; Lymphocytes # (auto) 1.58 K/uL (1.2-3.4); Lymphocytes % (auto) 25.2 %; Mean Corpuscular Hemoglobin 33.2 pg (25-34); Mean Corpuscular Hgb Conc 33.2 g/dL (32-36); Mean Platelet Volume 10.1 fL (7.4-10.4); Monocytes # (auto) 0.69 K/uL (0.11-0.59); Neutrophils # (auto) 3.68 K/uL (1.4-6.5); Neutrophils % (auto) 58.8 %; Platelet Count 166 K/uL (130-400); RDW Coefficient of Variation 13.3 % (11.5-14.5); Red Blood Count 4.37 M/uL (4.7-6.1); White Blood Count 6.26 K/uL (4.8-10.8)
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
[2021-07-24 07:17] LABS: Albumin Level 3.6 gm/dl (3.4-5.0); BUN Creatinine Ratio 12.4 (10-20); Calcium 9.2 mg/dl (8.5-10.1); Creatinine Clr Calc Pharmacy 101.5 ml/min; Est GFR (African American) 84.9 ml/min; Est GFR (Non-African American) 73.3 ml/min; Magnesium 2.4 mg/dl (1.8-2.4); Potassium 4.3 mmol/L (3.5-5.1)
[2021-07-24 07:19] LABS: Albumin Globulin Ratio 0.9 (0.9-2); Bilirubin,Total 0.6 mg/dl (0.2-1); Globulin 4.1 gm/dl (2.5-4.0); Phosphorus 4.2 mg/dl (2.5-4.9); Total Protein 7.7 gm/dl (6.4-8.2)
[2021-07-24] MEDS: LORazepam 1 MG/2 ML VIAL IV PRN ×3 (08:29→16:05)
[2021-07-24] MEDS: NICOTINE 7 MG/24 HR TDSY TD SCH (08:35)
[2021-07-24] MEDS: THIAMINE HCL 100 MG in SYRINGE 9 ML IV SCH (08:35)
[2021-07-24] MEDS: FOLIC ACID 1 MG in SYRINGE 9.8 ML IV SCH (08:35)
[2021-07-24] MEDS: busPIRone 5 MG TAB PO SCH ×2 (08:36→14:10)
[2021-07-24] MEDS: POLYETHYLENE (MIRALAX) 17 GM PACK PO SCH ×2 (08:43→21:34)
[2021-07-24] MEDS: busPIRone 5 MG TAB PO PRN (19:41)
[2021-07-24] MEDS: LORazepam 2 MG/4 ML VIAL IV PRN (19:53)
[2021-07-24] MEDS: GABAPENTIN 300 MG CAP PO SCH (21:04)
[2021-07-24] MEDS: SERTRALINE HCL 50 MG TABLET PO SCH (21:04)
[2021-07-25] MEDS: ACETAMINOPHEN 325 MG TAB PO PRN ×2 (01:32→16:05)
[2021-07-25] MEDS: METHADONE HCL 5 MG TAB PO SCH (05:35)
[2021-07-25 06:36] LABS: Basophils # (auto) 0.02 K/uL (0-0.2); Basophils % (auto) 0.3 %; Eosinophils # (auto) 0.23 K/uL (0-0.5); Eosinophils % (auto) 3.6 %; Hematocrit (blood only) 43.1 % (42-52); Hemoglobin 14.5 g/dL (14.0-18.0); Lymphocytes % (auto) 29.5 %; Mean Corpuscular Hemoglobin 33.3 pg (25-34); Mean Corpuscular Hgb Conc 33.6 g/dL (32-36); Mean Corpuscular Volume 99.1 fL (80-100); Mean Platelet Volume 10.2 fL (7.4-10.4); Monocytes # (auto) 0.68 K/uL (0.11-0.59); Monocytes % (auto) 10.5 %; Neutrophils # (auto) 3.62 K/uL (1.4-6.5); Neutrophils % (auto) 56.1 %; Platelet Count 168 K/uL (130-400); RDW Coefficient of Variation 13.2 % (11.5-14.5); RDW Standard Deviation 47.9 fL (36.4-46.3); Red Blood Count 4.35 M/uL (4.7-6.1); White Blood Count 6.45 K/uL (4.8-10.8)
--- NOTE | 2021-07-25 07:01 | Hospitalist Progress Note ---
Date of Service July 25, 2021 Assessment & Plan (1) Alcohol withdrawal syndrome: Plan: 46yo male with a history of alcohol use disorder and opiate use disorder (on maintenance methadone therapy) presents with alcohol withdrawal in the setting of relapse. Alcohol withdrawal Has long history of alcohol use disorder with frequent ED visits for this in the past, denies history of DTs or seizures; last drink was evening of 07/17 AWSS scores ranging from 2-10 since admission; librium discontinued, IVF discontinued Hoping for DC directly to inpatient rehab if possible; otherwise, DC home while waiting for inpatient rehab placement. 07/24/21 Case management states there is rehab position for 07/28/21, but will try to find a closer date. Continue AWSS because patient still has some etoh withdrawal symptoms despite being ~7 days out. Mild tremor and self-endorsed hallucinations (person sitting on bed). 07/25: There was some concern patient's scores of ОЛЬГА are more from anxiety as opposed to etoh withdrawal. Switching to PO Ativan AWSS protocol from IV. Adding 100mg gabapentin during day. - AWSS 07/25 were 2, 1, 3, and received 1 mg of PO ativan Right arm pain Likely secondary to infiltrated IV. Lower suspicion for infection given clinical presentation. Neurovascularly intact. Monitor clinically. Defer imaging at this time. Anxiety Patient with severe anxiety despite improvement in withdrawal symptoms overall Continue ativan per AWSS protocol as above. 07/24/21: Will add sertraline and low dose gabapentin 300mg qhs (as adjunct for etoh withdrawal). Buspar 10 mg TID changed to PRN. Continue to monitor Alcohol use disorder Patient endorses long history of alcohol use disorder, reports recent few- month period of abstinence Current relapse triggered by multifactorial psychosocial stressors including family conflict and legal troubles Mildly elevated AST to 54, Tbili elevated to 1.5, ALT and alk phos wnl Inpatient rehab at [facility] once medically stable; CM following Continue folic acid, B12 Patient is not a naltrexone candidate given methadone use Recommend PCP follow-up, psychotherapy, outpatient psychiatry for diagnostic clarity and treatment History of suicidal ideation Patient noted with recent ED visits notable for suicidal and/or homicidal ideation Patient denies SI/HI at this time; 1:1 sitter not indicated at this time Continue to monitor Opioid use disorder Patient with long history of opioid use disorder, on maintenance methadone therapy Continue methadone 30mg daily Transaminitis (persists), hyperbilirubinemia (resolved) Patient with mild AST elevation (to 54) and Tbili elevation to 1.5 Likely represents alcoholic hepatitis Given absence of RUQ pain or other signs/symptoms of hepatic dysfunction, further workup not urgently needed Recommend outpatient follow-up Hypokalemia (resolved) Patient with mild hypokalemia likely secondary to alcohol use, poor PO intake Repleted orally, resolved, trend daily BMP FEN: regular diet Code status: full code DVT ppx: ambulation, scds Dispo: med/surg with plan for DC to inpatient rehab 07/26/21 ([facility] in [place]) (2) Hypokalemia: (3) Alcohol intoxication: (4) Methadone use: (5) Right arm pain: Admission and Anticipated Discharge Date Admission Date: July 20, 2021 Supervising Physician Co-Signing Physician Notes Resident Physician Supervision Note: I independently interviewed and examined the patient and verified the fermin history and physical, reviewed labs and image studies and agree with resident Dr. Kulkarni findings and care plan. Subjective Overall feels about same as yesterday. He still has severe anxiety and continues to feel as if someone is sitting in his bed next to him; happens once a day. Patient has been writing positive thoughts in his general. He continues to have some lower abd pain. He has had pain at his dorsal right forearm that he attributes to PIV (since removed yesterday). He has appetite. Review of Systems Review of Systems: Constitutional: Denies fever, chills, Eyes: Denies blurry vision, vision changes ENT: Denies sore throat, sinus pain Cardiovascular: Denies chest pain, palpitations Respiratory: Denies shortness of breath Gastrointestinal: Denies nausea, vomiting, constipation, diarrhea. Continues to have mild intermittent lower abd cramping pain during this hospitalization. Genitourinary: Denies urinary symptoms including dysuria Musculoskeletal: See HPI Integ: Denies jaundice or itching. Neurological: Denies headache. Physical Exam Physical Exam: General: Grossly A&O. NAD. Cooperative. HEENT: Atraumatic, normocephalic. EOMI Pulm: CTAB. -wheezes, -rales, -rhonchi. No respiratory distress. Cardiac: RRR, -mrg. Radial pulses intact and symmetrical. Abdominal: Nontender, nondistended, soft. Neuro: Mild-mod tremor w/ hands held out. Msk: Tender w/ palpation of dorsal forearm just proximal to wrist. Small needle wound noted at lateral dorsal distal forearm; that area is most ttp. No erythema or edema grossly noted. Pain exacerbated w/ making a fist. Results & Data Results & Data ([facility]) Vital Signs (Past 12 Hours) Vital Signs HR 70s. intermittent 90s. 99/69x1. Temp Pulse Resp BP Pulse Ox 07/25/21 05:35 36.5 C 79 14 99/69 L 96 07/24/21 22:54 36.6 C 67 18 115/78 95 07/24/21 19:28 36.6 C 99 H 18 135/88 98 Temp Pulse Resp BP Pulse Ox 36.4 C L 81 16 110/87 100 07/25/21 07:49 07/25/21 07:49 07/25/21 07:49 07/25/21 07:49 07/25/21 07:49 Laboratory Results cbc stable. plt 168. bmp stable. ast 51 alt 106 stable 07/25/21 06:07 07/25/21 06:07 Resident Activity Tracking Resident Involvement: Resident Care Provided Care Provided: Adult Hospital Medicine (1) Alcohol withdrawal syndrome Complication of substance-induced condition: with unspecified complication Qualified Code(s): F10.239 - Alcohol dependence with withdrawal, unspecified (2) Alcohol intoxication Complication of substance-induced condition: uncomplicated Qualified Code(s): F10.920 - Alcohol use, unspecified with intoxication, uncomplicated
[2021-07-25 07:07] LABS: Albumin Level 3.7 gm/dl (3.4-5.0); BUN Creatinine Ratio 16.3 (10-20); Calcium 9.2 mg/dl (8.5-10.1); Est GFR (African American) 88.6 ml/min; Est GFR (Non-African American) 76.4 ml/min; Potassium 4.2 mmol/L (3.5-5.1)
[2021-07-25 07:10] LABS: Albumin Globulin Ratio 0.9 (0.9-2); Bilirubin,Total 0.6 mg/dl (0.2-1); Total Protein 7.7 gm/dl (6.4-8.2)
[2021-07-25] MEDS: busPIRone 5 MG TAB PO PRN ×2 (07:53→19:57)
[2021-07-25] MEDS: NICOTINE 7 MG/24 HR TDSY TD SCH (09:30)
[2021-07-25] MEDS: FOLIC ACID 1 MG in SYRINGE 9.8 ML IV SCH (09:33)
[2021-07-25] MEDS: POLYETHYLENE (MIRALAX) 17 GM PACK PO SCH ×2 (09:34→19:55)
[2021-07-25] MEDS: THIAMINE HCL 100 MG in SYRINGE 9 ML IV SCH (09:40)
[2021-07-25] MEDS ORDERED: LORazepam 1 MG TAB PO PRN (12:19)
[2021-07-25] MEDS ORDERED: GABAPENTIN 100 MG CAP PO STA (12:23)
[2021-07-25] MEDS: SERTRALINE HCL 50 MG TABLET PO SCH (20:31)
[2021-07-25] MEDS: GABAPENTIN 300 MG CAP PO SCH (20:31)
[2021-07-25] MEDS ORDERED: MELATONIN 3 MG TAB PO PRN (20:57)
[2021-07-26] MEDS: DICLOFENAC SOD 1% GEL 100 GM TUBE EXT PRN ×2 (02:31→11:00)
[2021-07-26] MEDS: METHADONE HCL 5 MG TAB PO SCH (05:16)
[2021-07-26] MEDS: ACETAMINOPHEN 325 MG TAB PO PRN (05:21)
--- NOTE | 2021-07-26 06:50 | Discharge Summary ---
Date of Service July 26, 2021 Admission HPI Per Admitting Provider 46 yo M in ER for acute alcohol withdrawal. Has been drinking ~2 fifths of whiskey per day for the past year. He has started the process of getting into inpatient rehab a few days ago but said they're waiting on paperwork from the methadone clinic for approval. He denies a history of alcoholism prior to the past year. He has been experiencing shakes, tachycardia, palpitations and tingling since stopping drinking on saturday evening. He hasn't had a bowel movement in 3 days, but says his last one was black and tarry. Smokes 1/2 ppd x 20 years. also feeling as though he can't get enough air/it's hard to take a deep breath. Chills and sweats for the past 3 days. Admission Exam Per Admitting Provider Constitutional: tremulous, anxious appearing, tearful Eyes: EOMI, pupils equal and reactive bilaterally, no scleral icterus Cardiac: RRR, no murmurs, gallops or rubs. Normal S1, S2 Pulm: good air entry bilaterally, some end expiratory wheezing R>L Abd: soft, nontender, nondistended, normal bowel sounds, no rebound or guarding Extremities: 2+ peripheral pulses, no edema Neuro: mild tremor, no focal deficits, moving all 4 limbs, A&Ox3 Principal Diagnosis alcohol withdrawal Discharge Exam General: Grossly A&O. NAD. Cooperative. HEENT: Atraumatic, normocephalic. EOMI. PERRL. Pulm: CTAB. -wheezes, -rales, -rhonchi. No respiratory distress. Cardiac: RRR, -mrg. No LE edema. Abdominal: Nondistended, soft. Mild LLQ TTP, no rebound or guarding Neuro: Moderate tremor w/ hands held out. Msk: Tender w/ palpation of dorsal forearm just proximal to wrist. Small needle wound noted at lateral dorsal distal forearm; that area is most ttp, worst just dorsal to the needle wound. No erythema or edema grossly noted. Radial pulse of RUE intact. Giid strength/sensaton. Some discomfort w wrist flexion/extension. Discharge Data Allergies Allergy/AdvReac Type Severity Reaction Status Date / Time amoxicillin [From Augmentin] Allergy Severe Anaphylaxis Verified 07/19/21 20:24 clavulanic acid Allergy Severe Anaphylaxis Verified 07/19/21 20:24 [From Augmentin] Penicillins Allergy Unknown STRONG Verified 07/19/21 20:24 FAMILY HX OF ALLERGIC REACTIONS Consultations 07/20/21 01:40 ED Decision to Admit Stat Ordered Studies 07/26/21 07:04 07/26/21 07:04 Chest/Abdomen X-ray 07/19/21 20:06 PA CHEST WITH ABDOMINAL SERIES CLINICAL HISTORY: Nausea. Left upper quadrant abdominal pain FINDINGS: A PA chest radiograph is compared to study dated 06/12/2021. The cardiomediastinal silhouette is unremarkable. There is mild elevation of the right hemidiaphragm and bibasilar atelectasis. The lungs and pleural spaces are otherwise clear. No pneumothorax is seen. The bony thorax is grossly intact. Supine and erect abdominal radiographs are correlated with abdominal CT dated 06/14/2021. There is a nonobstructed abdominal bowel gas pattern. Moderate fecal retention is noted in the right colon. No evidence of intraperitoneal free air is seen. There are no abnormal abdominal calcifications. The lumbosacral spine and bony pelvis appear intact. IMPRESSION: 1. No active disease in the chest. 2. Nonobstructed abdominal bowel gas pattern. ACT 112: Negative or not required by law. Electronically signed by: Harsh Rubio M.D. 07/20/2021 7:31 AM Wrist X-Ray 07/26/21 09:05 RIGHT WRIST 4 VIEWS CLINICAL HISTORY: Right wrist pain. FINDINGS: 4 views of the right wrist are obtained. No prior studies are available for comparison at the time of dictation. The skeletal structures are well mineralized. No acute fracture is seen. There is chronic posttraumatic deformity of the fifth metacarpal. The joint spaces of the wrist are preserved. The overlying soft tissues are normal as imaged. IMPRESSION: No acute bony abnormality is identified. Electronically signed by: Harsh Rubio M.D. 07/26/2021 11:30 AM Hospital Course (1) Alcohol withdrawal syndrome: Jamie Pena is a 46 y/o male with a history of anxiety, alcohol use disorder, and opiate use disorder (on maintenance methadone therapy) who was admitted to [facility] from 07/20/21-07/26/21 for alcohol withdrawal. Alcohol withdrawal Has long history of alcohol use disorder with frequent ED visits for this in the past, denies history of DTs or seizures; last drink was evening of 07/17. AWSS scores ranging from 1-10 since admission with overall downtrending. He was treated with IV Ativan PRN per AWSS protocol. He required 1 mg of PO Ativan 24 hours prior to discharge. During latter part of hospitalization, there was some concern patient's scores of AWSS are more from anxiety as opposed to etoh withdrawal. Ativan discontinued upon discharge. Alcohol use disorder Patient is not a naltrexone candidate given methadone use Recommend PCP follow-up, psychotherapy, outpatient psychiatry for diagnostic clarity and treatment Avoid NSAIDs as platelets low-normal (168) and one episode of black stool prio r to admission. Hb stable 14.1. Opioid use disorder Patient with long history of opioid use disorder, on maintenance methadone therapy 30 mg daily. Planning to wean off methadone use while at inpatient rehab/detox. Anxiety New prescriptions: Buspar 10 mg TID PRN for anxiety. Sertraline 25mg qhs. PCP to titrate in outpatient setting. gabapentin 100 mg in am and 300 mg qhs to avoid BZD Hallucinations Visual, mild, existing prior to hospitalization. Outpatient f/u w/ psych. Will arrange at PCP visit. History of suicidal ideation Recent ED visits notable for suicidal and/or homicidal ideation Patient denied SI/HI during this admission Right arm pain Likely secondary to infiltrated IV. Tender, but no erythema or swelling noted. Avoid lab draws in right arm for 2 weeks. XR of R wrist was neg for fracture. Lower abdominal pain Most likely 2/2 constipation as imaging noted moderate fecal stool burden. Follow clinically as outpatient and add bowel regimen. Tobacco use disorder Daily nicotine patch. PRN nicotine gum Mild liver enzyme elevations, AST 38 ALT 96 Likely represents alcoholic hepatitis. Absence of RUQ pain or other symptoms/signs of hepatic dysfunction. Follow up as outpatient. Check CMP in 1 month. Hypokalemia(resolved) Dispo: [place] [facility] drug and alcohol rehab (2) Hypokalemia: (3) Alcohol intoxication: (4) Methadone use: (5) Right arm pain: Total Time Total Time Spent Total Time Spent (In Minutes): <30 Discharge Plan Discharge Items Patient Disposition: Drug & Alcohol Rehab Reason For Visit: ALCOHOL WITHDRAWAL Discharge Diagnosis: Alcohol withdrawal Activity: Per Instructions section Non-emergency contact: Primary Care Provider Call non-emergency contact if: your symptoms worsen, your pain is concerning for you and you have a fever Follow-up/Referrals: Alberto Kulkarni MD [Resident] - (Patient to follow up with Dr. Alberto Kulkarni at [facility] upon discharge from inpatient rehab.) PCP,ROD [Primary Care Provider] - Diet: Regular Addtl Attending Provider Instructions: Jamie Pena is a 46 y/o male with a history of anxiety, alcohol use disorder, and opiate use disorder (on maintenance methadone therapy) who was admitted to [facility] from 07/20/21-07/26/21 for alcohol withdrawal. Upon completion of inpatient rehab, please follow up with [facility] provider Dr. Alberto Kulkarni who will be patient's PCP. Alcohol withdrawal Has long history of alcohol use disorder with frequent ED visits for this in the past, denies history of DTs or seizures; last drink was evening of 07/17 AWSS scores ranging from 1-10 since admission with overall downtrending. He was treated with IV Ativan PRN per AWSS protocol. He required 1 mg of PO Ativan 24 hours prior to discharge. During latter part of hospitalization, there was some concern patient's scores of AWSS are more from anxiety as opposed to etoh withdrawal Ativan discontinued upon discharge. New prescription: gabapentin 100 mg daily and 300 mg qhs. Alcohol use disorder Patient is not a naltrexone candidate given methadone use Recommend PCP follow-up, psychotherapy, outpatient psychiatry for diagnostic clarity and treatment Avoid NSAIDs as platelets low-normal (168) and one episode of black stool prior to admission. Hb stable 14.1. Opioid use disorder Patient with long history of opioid use disorder, on maintenance methadone therapy 30 mg daily. Patient would like to wean off methadone use while at inpatient rehab/detox. Anxiety New prescriptions: Buspar 10 mg TID PRN for anxiety. Sertraline 25mg qhs. PCP to titrate in outpatient setting. Hallucinations Visual, mild, existing prior to hospitalization. Outpatient f/u w/ psych. Will arrange at PCP (w/ Dr. Kulkarni) visit. Tobacco use disorder Daily nicotine patch. PRN nicotine gum Right arm pain Likely secondary to infiltrated IV. Tender, but no erythema or swelling noted. Avoid lab draws in right arm for 2 weeks. XR of R wrist was neg for fracture, ordered because of focal ttp and hx of police altercation a few days prior to this admission. History of suicidal ideation Patient noted with recent ED visits notable for suicidal and/or homicidal ideation Patient denies SI/HI during this admission Mild liver enzyme elevations, AST 38 ALT 96 Likely represents alcoholic hepatitis. Absence of RUQ pain or other symptoms/signs of hepatic dysfunction. Follow up as outpatient. Check CMP in 1 month. Hypokalemia(resolved) Dispo: [facility] [place] drug and alcohol rehab Pending Studies at Discharge: No Stand-Alone Forms: My [facility] Skilled Items Patient informed of condition?: Yes DNR: No Discharge Level of Care: Skilled Communicable Disease: No Discharge Prognosis: Stable Lines: None Urinary Catheter: No Medications and DC Order Prescriptions: New buspirone 5 mg Tablet 10 mg PO TID PRN (Reason: anxiety) 30 Days Qty: 90 RF: 0 nicotine (polacrilex) [Nicorette] 2 mg Gum 2 mg MT Q2H PRN (Reason: nicotine cravings) 30 Days Qty: 60 RF: 0 gabapentin 300 mg Capsule 300 mg PO QPM Qty: 30 RF: 0 gabapentin 100 mg Capsule 100 mg PO DAILY@1200 30 Days Qty: 30 RF: 0 nicotine 7 mg/24 hr Patch 24 Hour 7 mg transdermal QAM 30 Days Qty: 30 RF: 0 diclofenac sodium [Voltaren Arthritis Pain] 1 % Gel 2 g EXT QID PRN (Reason: arthritis) 30 Days Qty: 100 RF: 0 melatonin 3 mg Tablet 3 mg PO HS PRN (Reason: sleep) 30 Days Qty: 30 RF: 0 sertraline 50 mg Tablet 25 mg PO QPM Qty: 30 RF: 0 Continued multivitamin Tablet 1 tab PO DAILY RF: 0 methadone 10 mg Tablet 30 mg PO QAM RF: 0 epinephrine [EpiPen] 0.3 mg/0.3 mL auto-injector 0.3 mg IM Q15M PRN (Reason: anaphylaxis) Qty: 2 RF: 0 Changed bismuth subsalicylate [Pepto-Bismol] 262 mg Tablet,Chewable 2 tab PO BID PRN (Reason: Stomach Upset) Qty: 30 RF: 0 Discharge Orders: Discharge Order (Routine); Ordered 07/26/21 Ordered By: Alberto Arenas/Other Patient Handouts: Alcoholism Resources Admission Data Admit Date/Time: 07/20/21 02:15 Attending Provider: America Proctor Admit Provider: Milly Garcia Primary Care Provider: PCP,NO Other Providers: Cesar Sanz Other Interventions: Discharge Summary Assessment (RN) Last Done: 07/26/21 14:58 Supervising Physician Co-Signing Physician Notes Resident Physician Supervision Note: I independently interviewed and examined the patient and verified the fermin history and physical, reviewed labs and image studies and agree with resident Dr. Kulkarni findings and care plan. Resident Activity Tracking Resident Involvement: Resident Care Provided Care Provided: Adult Hospital Medicine
[2021-07-26 07:14] LABS: Basophils # (auto) 0.02 K/uL (0-0.2); Basophils % (auto) 0.3 %; Eosinophils # (auto) 0.19 K/uL (0-0.5); Eosinophils % (auto) 3.1 %; Hematocrit (blood only) 42.3 % (42-52); Hemoglobin 14.1 g/dL (14.0-18.0); Immature Granulocytes # (auto) 0.01 K/uL (0.00-0.02); Immature Granulocytes % (auto) 0.2 %; Lymphocytes % (auto) 21.2 %; Mean Corpuscular Hemoglobin 32.9 pg (25-34); Mean Corpuscular Hgb Conc 33.3 g/dL (32-36); Mean Corpuscular Volume 98.8 fL (80-100); Mean Platelet Volume 9.7 fL (7.4-10.4); Monocytes # (auto) 0.78 K/uL (0.11-0.59); Monocytes % (auto) 12.7 %; Neutrophils # (auto) 3.84 K/uL (1.4-6.5); Neutrophils % (auto) 62.5 %; Platelet Count 168 K/uL (130-400); RDW Coefficient of Variation 13.1 % (11.5-14.5); RDW Standard Deviation 47.4 fL (36.4-46.3); Red Blood Count 4.28 M/uL (4.7-6.1); White Blood Count 6.14 K/uL (4.8-10.8)
[2021-07-26 07:38] LABS: Albumin Level 3.6 gm/dl (3.4-5.0); BUN Creatinine Ratio 13.1 (10-20); Calcium 9.2 mg/dl (8.5-10.1); Est GFR (African American) 89.5 ml/min; Est GFR (Non-African American) 77.3 ml/min; Potassium 4.6 mmol/L (3.5-5.1)
[2021-07-26 07:40] LABS: Albumin Globulin Ratio 0.9 (0.9-2); Bilirubin,Total 0.5 mg/dl (0.2-1); Total Protein 7.6 gm/dl (6.4-8.2)
[2021-07-26] MEDS: POLYETHYLENE (MIRALAX) 17 GM PACK PO SCH (08:37)
[2021-07-26] MEDS: NICOTINE 7 MG/24 HR TDSY TD SCH (08:37)
[2021-07-26] MEDS: FOLIC ACID 1 MG in SYRINGE 9.8 ML IV SCH (08:41)
[2021-07-26] MEDS: THIAMINE HCL 100 MG in SYRINGE 9 ML IV SCH (08:45)
[2021-07-26] MEDS: busPIRone 5 MG TAB PO PRN (10:58)
--- NOTE | 2021-07-26 11:32 | XRay Report ---
RIGHT WRIST 4 VIEWS CLINICAL HISTORY: Right wrist pain. FINDINGS: 4 views of the right wrist are obtained. No prior studies are available for comparison at t he time of dictation. The skeletal structures are well mineralized. No acute fracture is seen. There is chronic posttraumatic deformity of the fifth metacarpal. The joint spaces of the wrist are preserv ed. The overlying soft tissues are normal as imaged. IMPRESSION: No acute bony abnormality is identified. Electronically signed by: Harsh Rubio M.D. 07/26/2021 11:30 AM
[2021-07-26] MEDS ORDERED: LIDOCAINE 5% 1 PATCH TD SCH (11:45)
[2021-07-26] MEDS ORDERED: GABAPENTIN 100 MG CAP PO SCH (12:00)
== END 2021-07-26 16:52 | disposition alcohol treatment (31) | DRG 897 ==
LOC: ED 19:30 → SUATTDRO 07-20 02:15 → 1E 07-20 02:15 → 2N 07-20 18:07 → 3N 07-23 12:46